=== PATIENT | female | born 1980 | race Two or more races ===

== ENCOUNTER 2017-02-15 17:22 | Emergency (ER) | payer OTHER ==
[~2017-02-15] VITALS: Ht 149.9 cm; Wt 41.7 kg
[2017-02-15] MEDS ORDERED: NKM (17:31)
[2017-02-15] MEDS ORDERED: IBUPROFEN600 MG ORAL (18:41)
[2017-02-15 18:52] VITALS: BP 102/64
--- NOTE | 2017-02-16 12:36 | Emergency Room Report ---
History of Present Illness General Chief Complaint: Lower Extremity Injury Source: Patient Present Illness HPI The patient is a 37-year-old female presenting for right toe pain which began today at work. She states that she dropped a box of milk on the toe. Pain is now 9/10 throbbing sensation and does not radiate. Worse with touch. She denies any other symptoms or injury Allergies: Coded Allergies: No Known Allergies (Unverified , 02/15/17) Patient History Past Medical History: see triage record Pertinent Family History: none Last Menstrual Period: 01/22/17 Now: No Reviewed Nursing Documentation: PMH: Agreed, PSxH: Agreed Nursing Documentation-PMH Past Medical History: No Stated History Review of Systems All Other Systems: negative except mentioned in HPI Physical Exam Vital Signs Date Time Temp Pulse Resp B/P (MAP) Pulse Ox O2 Delivery O2 Flow Rate FiO2 02/15/17 17:27 98.2 83 17 102/64 99 Room Air Sp02 EP Interpretation: reviewed, normal General Appearance: no apparent distress, alert, GCS 15, non-toxic Head: normocephalic, atraumatic Eyes: bilateral eye normal inspection, bilateral eye PERRL Musculoskeletal: normal inspection, back normal, gait/station normal, normal range of motion, tender - TTP over the R 1st toe Neurologic: alert, oriented x3, responsive, motor strength/tone normal, sensory intact, speech normal Psychiatric: judgement/insight normal, memory normal, mood/affect normal, no suicidal/homicidal ideation Skin: normal color, no rash, warm/dry, well hydrated Lymphatic: no adenopathy Medical Decision Making PA Attestation Dr. Villanueva is my supervising physician. Patient management was discussed with my supervising physician Diagnostic Impression: Primary Impression: Contusion of toe of right foot Qualified Codes: S90.111A - Contusion of right great toe without damage to nail, initial encounter ER Course The patient is a 37-year-old female presenting for right toe pain Ddx considered include but not limited to sprain/strain, fracture, contusion PE: NAD R foot unremarkable. No obvious deformity. TTP over the 1st toe. No ecchymosis R foot xray unremarkable. Pt will be DC'ed home and will FU with worker's compensation Other X-Ray Diagnostic Results Other X-Ray Diagnostic Results : X-Ray ordered: R foot # of Views/Limited Vs Complete: 3 View Indication: Pain EP Interpretation: Yes Interpretation: no dislocation, no soft tissue swelling, no fractures Impression: No acute disease Electronically Signed by: DO SHAZIA Kerr Scribe Text I am acting as scribe for my supervising physician. My supervising physician's interpretation of the R foot xrays are there are no fractures, dislocations or soft tissue swelling. Last Vital Signs Date Time Temp Pulse Resp B/P (MAP) Pulse Ox O2 Delivery O2 Flow Rate FiO2 02/15/17 18:52 98.2 17 102/64 99 Room Air 02/15/17 17:27 83 Status: improved Disposition: HOME, SELF-CARE Condition: Improved Scripts Ibuprofen* (MOTRIN*) 600 Mg Tablet 600 MG ORAL Q8H Y for For Pain, #30 TAB 0 Refills Prov: ALYSHA URENA 02/15/17 Patient Instructions: Foot Contusion Additional Instructions: I discussed my findings with the patient. All questions and concerns have been answered. Treatment and medication compliance have been addressed. I advised the patient that they need to follow up with PMD in 3-5 days. Return to ED if pain remains or worsens, numbness or tingling occurs, new rash is noticed, fever is noticed, or if needed for any reason. Patient verbalized understanding of discharge instructions. ALYSHA URENA Feb 16, 2017 12:36
--- NOTE | 2017-02-16 12:37 | Diagnostic Imaging Report ---
Indication: Pain Comparison: None Findings: 3 views of the right foot were obtained. No acute fractures, malalignment, erosions or periostitis are identified. Bone mineralization is within normal limits. Soft tissues are unremarkable. Impression: Negative examination of the right foot.
== END 2017-02-15 18:53 | disposition home or self-care (01) ==
LOC: EMR 18:01
DX: S90.111A Contusion of right great toe without damage to nail, initial encounter (principal); W20.8XXA Other cause of strike by thrown, projected or falling object, initial encounter; Y92.511 Restaurant or cafe as the place of occurrence of the external cause; Y99.0 Civilian activity done for income or pay
CPT/HCPCS: 99283